=== PATIENT | female | born 1955 | race Two or more races ===

== ENCOUNTER 2023-03-11 04:40 | Day surgery (SDC) | payer OTHER ==
[2023-03-08 11:36] VITALS: BMI 22.4
[2023-03-11 10:20] VITALS: BP 116/51; PULSE 59; RESP 19; TEMP 98.9
== END 2023-03-11 10:30 | disposition home or self-care (01) ==
LOC: JASU-ENDO 04:40
PROVIDERS: ATTEND Student in an Organized Health Care Education/Training Program
PROC: 0DBK8ZX Excision of Ascending Colon, Via Natural or Artificial Opening Endoscopic, Diagnostic (ICD-10-PCS; principal; 2023-03-11 08:30)
DX: K63.89 Other specified diseases of intestine (principal); K57.30 Diverticulosis of large intestine without perforation or abscess without bleeding; Z86.010 Personal history of colon polyps
CPT/HCPCS: 88305-TC